=== PATIENT | female | born 1955 | race Caucasian/White ===

== ENCOUNTER 2016-09-26 06:44 | Day surgery (SDC) | payer OTHER ==
[~2016-09-26 06:44] MED LIST: RINGERS SOLUTION,LACTATED 1,000 ML IV PRN; ceFAZolin SODIUM 2 GM in DEXTROSE 5 % IN WATER 50 ML IV PRN
[2016-09-26] MEDS ORDERED: BUPIVACAINE HCL/EPINEPHRINE 50 ML VIAL IJ ONE ×2 (08:00)
[2016-09-26] MEDS ORDERED: oxyCODONE HCL/ACETAMINOPHEN 1 TAB TABLET PO PRN (10:25)
[2016-09-26] MEDS ORDERED: MORPHINE SULFATE 2 MG/ML DISP.SYRIN IV PRN (10:26)
[2016-09-26 12:05] VITALS: BP 105/59
--- NOTE | 2016-09-26 17:46 | OR ---
Operative Report - Dictated Report Narrative: Date of operation: 09/26/2016 Preoperative diagnosis: Left inguinal hernia. Possible low midline incisional hernia Postoperative diagnosis: Indirect left inguinal hernia. Subcutaneous mass under midline incision (pathology pending) Operation: Repair of left inguinal hernia (high ligation of sac and placement of mesh patch). Excision of 2 cm subcutaneous mass Surgeon: JULIO Shaikh MD Anesthesia: Gen. LMA Kar Warren CRNA Indications for procedure: The patient is a 61-year-old female with a left inguinal hernia and a firm mass above the pubis under a previous low midline incision Findings: Indirect left inguinal hernia. 2 cm fibrous mass (pathology pending) Narrative of procedure: The patient was identified preoperatively, the surgical site was marked, and prior to the administration of anesthetic a multidisciplinary timeout was observed. The patient was placed supine, SCDs were applied, and general LMA administered. 2 g of intravenous Ancef was administered. The patient's abdomen and genitalia were prepped with Betadine solution and the left groin isolated with 4 sterile towels so as to also allow access to low midline incision. The remainder the patient was covered with a sterile disposable drape. A transverse skin incision was made over the midportion of the left inguinal canal. Dissection was carried through subcutaneous tissue with electrocautery until the fascia of the external oblique aponeurosis was encountered. This was incised in the direction of its fibers down to and including the external inguinal ring. The ilioinguinal nerve was identified and protected throughout the procedure. An indirect hernia sac was found adjacent to the round ligament. Inspection of the inguinal floor revealed it to be sound out to the internal ring. The round ligament was dissected off the pubic tubercle and traced proximally to the internal ring. The hernia sac was then opened and a forefinger inserted. The inguinal floor was found to be sound. The undersurface of the anterior abdominal wall under the low midline incision was intact. The sac was then transfixed under direct vision with a suture ligature of 0 Ethibond. The neck of the sac and proximal end of the round ligament were then ligated. The sac and round ligament were amputated and submitted to pathology. The neck of the sac and round ligament stump were then redirected superiorly and medially with the same suture of 0 Ethibond. A small piece of protruding properitoneal fat was reduced and 2 interrupted sutures of 0 Ethibond were used to obliterate the internal inguinal ring. A tailored mesh patch was then placed in the inguinal floor and secured circumferentially to the pubic tubercle, along the conjoined tendon, and along the shelving border of the inguinal ligament with interrupted sutures of 0 Ethibond. The lateral end of the patch was then secured over the obliterated internal ring with several additional lateral interrupted sutures of 0 Ethibond. The wound was inspected for hemostasis which appeared complete. The repair appeared sound. Next the subcutaneous tissue in the medial end of the incision was explored revealing a 2 cm firm subcutaneous mass. This was gradually dissected free from surrounding structures, removed and submitted to pathology. The mass appeared self-contained and there was no obvious hernia defect. After receiving a correct sponge needle and instrument count attention was turned to closing the wound. The external oblique aponeurosis was approximated with a running suture of 2-0 Vicryl. Subcutaneous tissues were approximated with interrupted sutures of 2-0 chromic. The skin was secured with a running subcuticular suture of 4-0 Vicryl. The operative site was washed and dried. A dressing of Dermabond, folded 4 x 4, and Medipore tape was applied. The operative procedure was terminated at this point. The patient tolerated the anesthetic and procedure well without complication. There was no measurable blood loss. 0.5% Marcaine with epinephrine was used for local anesthetic infiltration. The patient was transferred to the recovery room awake , extubated, and in stable condition. The patient remained stable throughout a period of postoperative observation. She was able to tolerate PO intake. Her pain was controlled with PO Percocet. She was able to ambulate without assistance. The dressing remained dry. She was discharged home with instructions not to lift and not to drive. She is to keep the current dressing dry and intact for 48 hours, but then may shower and change the dressing daily or as needed. The patient was given a prescription for Percocet 5/325 mg 1-2 PO Q4-6hrs prn pain. The patient has phone numbers to call prn signs of wound infection or hematoma, and an office appointment was made for 1 week. Reviewed and electronically signed
== END 2016-09-26 06:45 | disposition home or self-care (01) ==
LOC: AMB 06:44
PROVIDERS: ATTEND Surgery
PROC: 0JBC0ZX Excision of Pelvic Region Subcutaneous Tissue and Fascia, Open Approach, Diagnostic (ICD-10-PCS; 2016-09-26)
PROC: 0YU60JZ Supplement Left Inguinal Region with Synthetic Substitute, Open Approach (ICD-10-PCS; principal; 2016-09-26 08:00)
DX: K40.90 Unilateral inguinal hernia, without obstruction or gangrene, not specified as recurrent (principal); L72.0 Epidermal cyst; E78.5 Hyperlipidemia, unspecified; F17.200 Nicotine dependence, unspecified, uncomplicated; Z68.21 Body mass index [BMI] 21.0-21.9, adult